=== PATIENT | male | born 1955 | race Caucasian/White ===

== ENCOUNTER 2020-10-04 17:16 | Emergency (ER) | payer OTHER | END 2020-10-04 18:45 | disposition home or self-care (01) | LOC: ERS 17:16 | DX: S39.012A Strain of muscle, fascia and tendon of lower back, initial encounter (principal); X50.0XXA Overexertion from strenuous movement or load, initial encounter | CPT/HCPCS: 99283 ==

== ENCOUNTER 2022-05-22 13:51 | Emergency (ER) | payer MEDICARE ==
[2022-05-22] MEDS ORDERED: Ketorolac Tromethamine 30 MG/ML VIAL ONE (14:53)
== END 2022-05-22 15:21 | disposition home or self-care (01) ==
LOC: ERS 13:51
DX: M25.511 Pain in right shoulder (principal)
CPT/HCPCS: 96372; 99282; J1885

== ENCOUNTER 2024-01-07 13:31 | Outpatient (CLI) | payer MEDICARE | END 2024-01-07 13:32 | disposition home or self-care (01) | LOC: BICMRI 13:31 | PROVIDERS: ATTEND Family Medicine | DX: M48.062 Spinal stenosis, lumbar region with neurogenic claudication (principal); M47.816 Spondylosis without myelopathy or radiculopathy, lumbar region; M43.16 Spondylolisthesis, lumbar region; Z98.890 Other specified postprocedural states | CPT/HCPCS: 72158; 82565 ==